=== PATIENT | female | born 1960 ===

== ENCOUNTER 2021-02-18 08:40 | Day surgery (SDC) | payer OTHER ==
[2021-02-18] MEDS ORDERED: PERCOCET 5-3251 EACH PO (12:35)
== END 2021-02-18 16:43 | disposition home or self-care (01) ==
LOC: CIR.AMB 08:40
PROVIDERS: ATTEND Surgery
DX: K62.82 Dysplasia of anus (principal); Z20.822 Contact with and (suspected) exposure to COVID-19